=== PATIENT | male | born 1995 | race African-American/Black ===

== ENCOUNTER 2017-11-03 22:39 | Emergency (ER) | payer OTHER ==
[~2017-11-03] VITALS: Ht 188 cm; Wt 83.9 kg
--- NOTE | 2017-11-03 22:45 | NUR ---
BIB 76 [employer] [facility] [employer] PT ADMITS TO TAKING METH. PT AOX3 NO NVD AT THIS TIME. PT GOWNED AND PLACED ON MONITOR PT NOT DIAPHORETIC. PT WAITING FOR MD BILLINGS.
[2017-11-03] MEDS ORDERED: LORAZEPAM INJ 2 MG/ML VIAL ONE (22:57)
[2017-11-03] MEDS: LORAZEPAM INJ 2 MG/ML VIAL IM ONE (23:00)
--- NOTE | 2017-11-03 23:01 | NUR ---
LAB AT BEDSIDE FOR BLOOD DRAW.
[2017-11-03 23:21] LABS: EOSINOPHILS % (AUTO) 0.1 % (0.0-6.0); HEMATOCRIT 45 % (39-51); HEMOGLOBIN 14.7 g/dL (13.5-17.5); LYMPHOCYTES # (AUTO) 0.6 /CMM (0.8-4.8); LYMPHOCYTES % (AUTO) 6.6 % (20.0-44.0); MEAN CORPUSCULAR HGB CONC 32 g/dl (31.0-36.0); MEAN CORPUSCULAR VOLUME 80 fL (80-96); MONOCYTES # (AUTO) 0.3 /CMM (0.1-1.30); MONOCYTES % (AUTO) 2.9 % (2.0-12.0); NEUTROPHILS # (AUTO) 8.8 /CMM (1.8-8.9); NEUTROPHILS % (AUTO) 90.4 % (43.0-81.0); PLATELET COUNT (AUTO) 235 /CMM (150-450); RDW COEFFICIENT OF VARIATION 15.4 (11.5-15.0); RED BLOOD CELL COUNT(AUTO) 5.67 MIL/uL (4.5-6.0); WHITE BLOOD COUNT (AUTO) 9.7 K/uL (4.3-11.0)
[2017-11-03 23:39] LABS: CALCIUM, SERUM 8.8 mg/dL (8.5-10.1); CARBON DIOXIDE 22 mmol/L (21-32); CHLORIDE 105 mmol/L (98-107); CREATININE 1.3 mg/dL (0.6-1.3); GLUCOSE 141 mg/dL (74-106); POTASSIUM 3.7 mmol/L (3.5-5.1); SODIUM SERUM 141 mmol/L (136-145); UREA NITROGEN, BLOOD 14 mg/dL (7-18)
[2017-11-03 23:41] LABS: ALANINE AMINOTRANSFERASE 46 U/L (12-78); ALBUMIN 4.2 g/dL (3.4-5.0); ALCOHOL, BLOOD < 3 mg/dL (0-0); ALKALINE PHOSPHATASE 99 U/L (46-116); ASPARTATE AMINOTRANSFERASE 36 U/L (15-37); BILIRUBIN,TOTAL 0.2 mg/dL (0.2-1.0); TOTAL PROTEIN, SERUM 8.2 g/dL (6.4-8.2)
[2017-11-03 23:42] LABS: ACETAMINOPHEN 0 ug/ml (10-30); SALICYLATE 1.4 mg/dL (2.8-20.0)
[2017-11-04] MEDS: LORAZEPAM INJ 2 MG/ML VIAL IM ONE (00:06)
--- NOTE | 2017-11-04 00:08 | NUR ---
PT APPEARS MORE RELAXED. PT AOX4.
[2017-11-04 01:06] LABS: APPEARANCE,URINE CLEAR (CLEAR); BILIRUBIN,URINE NEGATIVE (NEGATIVE); BLOOD, URINE NEGATIVE Ery/uL (NEGATIVE); COLOR,URINE YELLOW (YELLOW); KETONES,URINE TRACE (NEGATIVE); LEUKOCYTE ESTERASE ,URINE NEGATIVE (NEGATIVE); NITRITE, URINE NEGATIVE (NEGATIVE); PH,URINE 6.5 (5.0-8.0); PROTEIN,URINE TRACE mg/dl (NEGATIVE); UGLUCOSE NEGATIVE (NEGATIVE); UROBILINOGEN,URINE 0.2 EU/dL (0.2)
--- NOTE | 2017-11-04 01:16 | NUR ---
Patient is resting comfortably in bed with eyes closed. Easily aroused. VSS
[2017-11-04 02:34] LABS: BACTERIA,URINE Few /HPF (None Seen); RBC,URINE 0-2 /HPF (0-2); SQUAMOUS EPITHELIAL CELL,UR Rare /HPF (None Seen); WBC,URINE 0-2 /HPF (0-3)
--- NOTE | 2017-11-04 03:15 | NUR ---
Patient is resting comfortably in bed with eyes closed. Easily aroused. VSS
[2017-11-04 07:47] VITALS: BP 126/80
== END 2017-11-04 07:47 | disposition home or self-care (01) ==
LOC: ER 22:42
DX: F15.129 Other stimulant abuse with intoxication, unspecified (principal); R46.89 Other symptoms and signs involving appearance and behavior
CPT/HCPCS: 36415; 80048; 80076; 80305; 80329; 81001; 85025; 96372; 99284; A4606 ×3; G0480 ×2; J2060; Z7610 ×3; 81000-TC